=== PATIENT | male | born 1965 | race Hispanic/Latino ===

== ENCOUNTER → 2016-11-09 | Outpatient (CLI) | payer OTHER ==
[~2016-11-09] MED LIST: CATHETER FLUSH 10 ML SYR IV PRN; IOHEXOL 350 MG/ML 100 ML (OMNIPAQUE 350) VIAL IV ONE; NS 100 ML (IVPB) BAG IV ONE
--- NOTE | 2016-11-09 12:22 | Diagnostic Imaging Report ---
PROCEDURE: CT abdomen with contrast only. TECHNIQUE: Multiple contiguous axial images were obtained through the abdomen after the administration of intravenous contrast. INDICATION: Right upper quadrant pain. 100 mL of Omnipaque 350 is administered intravenously. FINDINGS: The lung bases demonstrate minimal atelectasis or scarring. The liver, the gallbladder, the spleen, the pancreas, and the adrenal glands appear unremarkable. The kidneys have symmetric enhancement and excretion. There is no hydronephrosis. The abdominal aorta is normal in caliber. No para-aortic significantly enlarged lymph node is seen. There is no free fluid or fluid collection identified. IMPRESSION: No definite abnormality. If the area of pain is around the gallbladder, consider ultrasound evaluation. Dictated by: Dictated on workstation # [id number]
== END ==
LOC: RAD 10:58
PROVIDERS: ATTEND Internal Medicine
DX: R10.11 Right upper quadrant pain (principal)
CPT/HCPCS: 74160

== ENCOUNTER → 2016-11-29 | Outpatient (CLI) | payer OTHER ==
[~2016-11-29] MED LIST changes: -CATHETER FLUSH 10 ML SYR IV PRN; +GABA600T2 PO; +INSU100V5 SQ; -IOHEXOL 350 MG/ML 100 ML (OMNIPAQUE 350) VIAL IV ONE; +LISI-556 PO; +METF-478 PO; -NS 100 ML (IVPB) BAG IV ONE; +PANT40TA2 PO; +RANI75TA21 PO; +SUCR1TAB36 PO
== END ==
LOC: PREOP 05:35
PROVIDERS: ATTEND Surgery
DX: Z01.818 Encounter for other preprocedural examination (principal); R01.1 Cardiac murmur, unspecified

== ENCOUNTER → 2016-11-30 | Day surgery (SDC) | payer OTHER ==
[~2016-11-30] VITALS: Ht 167.6 cm; Wt 77.1 kg
[~2016-11-30] MED LIST changes: +HURRICAINE EXT TUBE (BENZOCAINE) XX ONE; +LABETALOL HCL 20 MG/4 ML VIAL ONE; +LACTATED RINGERS 1,000 ML IV ONE; +LACTATED RINGERS 1,000 ML IV SCH; +LIDOCAINE JELLY 2% (XYLOCAINE) 5 ML TUBE MM PRN; +MIDAZOLAM 2 MG/2 ML (VERSED) VIAL ONE; +PROPOFOL INJECTION 50 ML IV ONE
[2016-11-30 07:30] VITALS: BP 205/107
--- NOTE | 2016-11-30 08:07 | Progress Note-Pre Operative ---
Pre-Operative Progress Note H&P Reviewed The H&P was reviewed, patient examined and no changes noted. Date Seen by Provider: Nov 30, 2016 Time Seen by Provider: 08:06 Date H&P Reviewed: Nov 30, 2016 Time H&P Reviewed: 08:06 Pre-Operative Diagnosis: ruq abdominal pain, screening colonoscopy LOI CORDOVA DO Nov 30, 2016 08:07
--- NOTE | 2016-11-30 08:59 | Progress Note-Post Operative ---
Post-Operative Progess Note Surgeon (s)/Director Of Marketing (s) Surgeon LOI CORDOVA DO Director Of Marketing: na Pre-Operative Diagnosis ruq abdominal pain, screening colonoscopy Post-Operative Diagnosis duodenitis, gastritis, sigmoid colon polyp Procedure & Operative Findings Date of Procedure 11/30/16 Procedure Performed/Findings egd c biopsies and colonoscopy with hot bx polypectomy Anesthesia Type per box sealing machine feeder Estimated Blood Loss Estimated blood loss (mL): none Specimens/Packing Specimens Removed duodenum, antrum, sigmoid polyp LOI CORDOVA DO Nov 30, 2016 08:59
--- NOTE | 2016-11-30 09:02 | Discharge Inst-Simple/Standard ---
Discharge Inst-Standard Discharge Medications New, Converted or Re-Newed RX: RX on Chart Patient Instructions/Follow Up Plan of Care/Instructions/FU: Follow up johnny 2 weeks. Follow up with your regular doctor to recheck you blood pressure this week. Activity as Tolerated: Yes Discharge Diet: Regular Diet LOI CORDOVA DO Nov 30, 2016 09:02
[2016-11-30 09:10] VITALS: BP 143/82
[2016-11-30 09:40] VITALS: BP 182/110
[2016-11-30 10:15] VITALS: BP 182/110
--- NOTE | 2016-11-30 11:48 | OPERATIVE REPORT ---
DATE OF SERVICE: 11/30/2016 PREOPERATIVE DIAGNOSIS: Right upper quadrant abdominal pain, screening colonoscopy. POSTOPERATIVE DIAGNOSIS: Duodenitis, gastritis, sigmoid colon polyp. PROCEDURE: Esophagogastroduodenoscopy with biopsies, colonoscopy with hot biopsy polypectomy. SURGEON: Salvatore Jerez DO ANESTHESIA: Per SHEET METAL ERECTOR. ESTIMATED BLOOD LOSS: None. COMPLICATIONS: None. INDICATIONS: The patient is a 51-year-old male who has been having right upper quadrant abdominal pain. He understands the risks and benefits of procedure and wished to proceed with the procedure. Consent was signed and placed in the chart. PROCEDURE: The patient was taken to the endoscopy suite, placed in left lateral recumbent position. Timeout was performed. Scope was inserted in mouth, down the esophagus, stomach and into the duodenum without difficulty. The duodenum had some patchy erythematous areas and almost some slight white plaques. This area was not able to be removed with irrigation. Biopsy of one of these areas was obtained. Scope was continued slowly retracted back to the antrum where there were some erythematous changes and edematous tissue appearing in the antrum. Biopsy of the antrum was obtained. There were no other polyps, masses or ulcerations. Scope was retroflexed noting no other pathology. Scope was returned to its normal position, slowly withdrawn to the distal esophagus which had normal appearance. No erythema, polyps, masses or ulcerations. Scope was slowly retracted until completely removed. Digital rectal exam was performed and there were no palpable polyps, mass or ulcerations. The scope was inserted in the rectum and advanced all the way to the cecum with minimal difficulty. Prep was fair with lots of irrigation and suction. There are no polyps, masses or ulcerations in the cecum, ascending, transverse and descending colon. Within the sigmoid colon, a small polyp was present. Hot biopsy polypectomy was performed. Scope was continuously retracted back into the rectum where it was also retroflexed noting no other pathology. Scope was returned to its normal position, slowly withdrawn until completely removed. The patient tolerated procedure well without any complications and taken to recovery room in stable condition. RECOMMENDATIONS: The patient will follow up in the office in 2 weeks to discuss pathology. The patient will also be started on Protonix 40 mg daily and Carafate 1 gram four times a day. We will await biopsy results and see how is doing. The patient during the case and before was hypertensive. We recommend him following up with primary care this week for reevaluation. Job ID: [id number] DocumentID: [id number] Dictated Date: 11/30/2016 09:05:54 Monitor Tech Date: 11/30/2016 11:47:58 Dictated By: DO FRANTZ EDGAR
== END | disposition home or self-care (01) ==
LOC: SDC 05:51
PROVIDERS: ATTEND Surgery
DX: Z12.11 Encounter for screening for malignant neoplasm of colon (principal); D12.5 Benign neoplasm of sigmoid colon; K29.70 Gastritis, unspecified, without bleeding; K29.80 Duodenitis without bleeding; I10 Essential (primary) hypertension; E11.9 Type 2 diabetes mellitus without complications; Z87.891 Personal history of nicotine dependence; Z79.84 Long term (current) use of oral hypoglycemic drugs; Z79.899 Other long term (current) drug therapy
CPT/HCPCS: 82962; 88305; 88342